=== PATIENT | male | born 1955 | race Caucasian/White ===

== ENCOUNTER → 2024-07-07 07:33 | Outpatient (REF) | payer OTHER, SELFPAY | LOC: HWRAD 07:33 | PROVIDERS: ATTENDING PHYSICIAN Family Medicine | DX: S16.1XXA Strain of muscle, fascia and tendon at neck level, initial encounter (principal) | CPT/HCPCS: 72050 ==

== ENCOUNTER → 2025-03-18 07:03 | Outpatient (REF) | payer OTHER, SELFPAY | LOC: HWRCS 07:03 | PROVIDERS: ATTENDING PHYSICIAN Internal Medicine Interventional Cardiology; FAMILY PHYSICIAN Family Medicine | DX: I25.2 Old myocardial infarction (principal) | CPT/HCPCS: 93306 ==